=== PATIENT | female | born 1995 | race Caucasian/White ===

== ENCOUNTER 2022-02-18 14:30 | Outpatient (CLI) | payer OTHER | END 2022-02-18 23:59 | disposition home or self-care (01) | LOC: LAB.WC 14:30 | PROVIDERS: ATTEND Obstetrics & Gynecology | DX: Z36.85 Encounter for antenatal screening for Streptococcus B (principal) | CPT/HCPCS: 87797 ==

== ENCOUNTER 2022-02-26 06:30 | Inpatient (IN) | payer OTHER ==
[~2022-02-26 06:30] MED LIST: ACETAMINOPHEN 1,000 MG/100 ML 1,000 MG/100 ML BAG IV ONE; CEFAZOLIN 2G/50ML 0.9% NS 2 GM/50 ML BAG IV SCH; CELECOXIB 100 MG CAPSULE PO SCH; GABAPENTIN 400 MG CAPSULE PO SCH; LACTATED RINGERS 1,000 ML IV SCH; SODIUM CHLORIDE FLUSH 0.9% 10 ML SYRINGE IVP PRN
[2022-02-26 07:12] LABS: BASOPHILS % (AUTO) 0.3 %; EOSINOPHILS # (AUTO) 0.1 10^3/uL (0.0-0.7); EOSINOPHILS % (AUTO) 0.8 %; HCT - HEMATOCRIT 34.5 % (37.0-47.0); HGB - HEMOGLOBIN 11.1 g/dL (12.0-16.0); LYMPHOCYTES # (AUTO) 1.9 10^3/uL (1.5-3.5); LYMPHOCYTES % (AUTO) 20.4 %; MEAN CORPUSCULAR HEMOGLOBIN 27.3 pg (27.0-31.0); MEAN CORPUSCULAR HGB CONC 32.2 g/dL (32.0-36.0); MEAN CORPUSCULAR VOLUME 84.8 fL (81.0-99.0); MEAN PLATELET VOLUME 9.3 fL (7.9-10.8); MONOCYTES # (AUTO) 1.1 10^3/uL (0.0-1.0); MONOCYTES % (AUTO) 12.5 %; NEUTROPHILS # (AUTO) 5.8 10^3/uL (1.5-6.6); NEUTROPHILS % (AUTO) 64.2 %; PLT - PLATELET COUNT 146 10^3/uL (130-450); RED BLOOD COUNT 4.07 10^6/uL (4.20-5.40); RED CELL DISTRIBUTION WIDTH 15.4 % (12.0-15.0); WHITE BLOOD COUNT 9.1 x10^3/uL (4.8-10.8)
--- NOTE | 2022-02-26 07:38 | HISTORY & PHYSICAL EXAMINATION ---
Admit History - : 2 Parity: 1 Care: positive: [facility] Risk/History: positive: Previous Complications This : positive: None Smoking Status: Never smoker - Other Maternal History Other Maternal History: HPI: Patient is a 26-year-old -0-0-1 at 39 weeks gestation by 12-week ultrasou nd. She has good movement. Denies loss of fluid. No LOPES/BV or RUQP. No vaginal bleeding. Denies nausea and vomiting. Denies urinary urgency or dysuria. Occasional contraction. All other symptoms reviewed and were negative except per HPI. Course LMP: unknown. not regular, short interval. C/S 08/2020 HECTOR by LMP: unkown Initial U/S:07/24/2021 FINAL HECTOR:03/05/2022 Pre- Weight:185 BMI: 34 A pos/Rubella immune VZV:immune Genetic testing:AFP-neg FAS:EFW 398g 27th%ile, 3VC, Placenta anterior w/o previa, SOURAV normal 17.1cm Glucola 103 Influenza: 01/23/22 TDAP 12/11/2021 COVID: Infection last week. GBS: Positive HSV: Denies Breast pump Rx MOD: Repeat at 39 weeks. pp contraception: Undecided. pap:07/24/2021 NILM Initial GC/CT:07/24/2021 Negative PMH Cholelithiasis. Obesity PSH Previous low-transverse section x1 Laparoscopic cholecystectomy OB History -0-0-1 1. 09/07/2020, 40 weeks, section, indications, female, 8 pounds 15 ounces SH Denies tobacco, alcohol, drugs Family History Noncontributory Allergies No known drug allergies Medications Vitamins Physical exam: General: Alert, oriented, no acute distress Head: Normal cephalic atraumatic Eyes: PERRLA, extraocular motions intact. Respiratory: Normal rate of respiration. No accessory muscle use, normal respiratory effort. Cardiovascular: Regular rate and rhythm Abdomen: Gravid, nontender, nondistended Extremities: Normal range of motion Neuro: Oriented x3. Normal movements Psych: Appropriate mood and affect. Normal judgment and insight FHT: 140 BPM baseline, moderate variability, no accelerations, no decelerations [place]: 8-10 minutes Plan 26-year-old at 39 weeks gestation for repeat section 1. Repeat section - 2 gram cefazolin - section was recommended. Risks, benefits and alternatives were discussed including but not limited to infection, bleeding that may require blood products or hysterectomy for life saving measures, injury to surrounding organs including but not limited to bowel, bladder, ureters, tubes and ovaries and/or the baby. Should injury occur it could require longer/additional surgery to repair. The patient stated understanding and desired to proceed. All questions were answered posed by patient. 2. 39 weeks gestation 3. Obesity 4. Contractions -proceed with scheduled section 5. GBS positive 6. Short interpregnancy interval Meds/Allgy - Allergies Allergies/Adverse Reactions: Allergies Allergy/AdvReac Type Severity Reaction Status Date / Time No Known Drug Allergies Allergy Verified 02/26/22 01:10 Physical - Abdominal Exam Vital Signs: Temp Pulse Resp BP Pulse Ox O2 Flow Rate 97.9 F 88 22 129/82 H 02/26/22 06:54 02/26/22 06:54 02/26/22 06:54 02/26/22 06:54 Plan for Labor - Plan For Labor I expect patient to be DC'd or transferred within 96 hours.: Yes
[2022-02-26] MEDS ORDERED: OXYTOCIN 10 UNIT/ML VIAL ONE ×2 (07:41→09:34)
[2022-02-26] MEDS ORDERED: fentaNYL 100 MCG/2 ML VIAL ONE (08:00)
[2022-02-26] MEDS ORDERED: MORPHINE PF 5 MG/10 ML VIAL ONE (08:00)
[2022-02-26] MEDS ORDERED: fentaNYL 100 MCG/2 ML VIAL IT ONE (08:25)
[2022-02-26] MEDS ORDERED: MORPHINE PF 5 MG/10 ML VIAL IT ONE (08:25)
--- NOTE | 2022-02-26 08:35 | ANESTHESIA ---
Pre-Anesthesia VS, & Labs - Diagnosis previous c/s - Procedure c/s Vital Signs: Temp Pulse Resp BP Pulse Ox O2 Flow Rate 36.6 C 88 22 129/82 H 02/26/22 06:54 02/26/22 06:54 02/26/22 06:54 02/26/22 06:54 Height: 5 ft 2 in Weight (kg): 99.337 kg Body Mass Index: 40.0 BMI Classification: Morbidly Obese - NPO >8 hours - Is Patient ?: Yes - Lab Results Current Lab Results: Laboratory Tests 02/26/22 07:22: Blood Type Recheck A POSITIVE 02/26/22 07:04: WBC 9.1, RBC 4.07 L, Hgb 11.1 L, Hct 34.5 L, MCV 84.8, MCH 27.3, MCHC 32.2, RDW 15.4 H, Plt Count 146, MPV 9.3, Neut # (Auto) 5.8, Lymph # (Auto) 1.9, [place] # (Auto) 1.1 H, Eos # (Auto) 0.1, Baso # (Auto) 0.0, Absolute Nucleated RBC 0.00, Nucleated RBC % 0.0 02/26/22 07:04: Blood Type A POSITIVE, Antibody Screen NEGATIVE Lab results reviewed: Yes Fish Bones: 02/26/22 07:04 Home Medications and Allergies Active Medications Celecoxib (Celecoxib 100 Mg Capsule) 400 mg PO ONCE RENETTA Stop: 02/27/22 05:59 Last Admin: 02/26/22 07:48 Dose: 400 mg Gabapentin (Gabapentin 400 Mg Capsule) 800 mg PO ONCE RENETTA Stop: 02/27/22 05:59 Last Admin: 02/26/22 07:49 Dose: 800 mg Lactated Ringer's (Lr) 1,000 mls @ 0 mls/hr IV .Q0M RENETTA Last Admin: 02/26/22 07:28 Dose: 30 mls/hr Cefazolin/Sodium Chloride (Ancef 2 Grams/50ml) 2 gm in 50 mls @ 100 mls/hr IV Q8H RENETTA Sodium Chloride (Sodium Chloride Flush 0.9% 10 Ml Syringe) 10 ml IVP PRN PRN PRN Reason: NEEDED PER PROVIDER ORDERS Allergies/Adverse Reactions: Allergies Allergy/AdvReac Type Severity Reaction Status Date / Time No Known Drug Allergies Allergy Verified 02/26/22 01:10 Anes History & Medical History - Anesthetic History Anesthesia Complications: reports: No previous complications Family history of Anesthesia Complications: Denies Family history of Malignant Hyperthermia: Denies - Medical History Cardiovascular: reports: None Pulmonary: reports: Asthma Smoking Status: Never smoker History of Cancer?: No - Surgical History General: reports: Cholecystectomy Gynecologic: reports: section - Obstetrical History : 2 Parity: 1 Events: reports: Previous Complications: reports: None Exam General: Alert, Oriented x3, Cooperative Dental: WNL Mouth Openin Fingerbreadth Neck Mobility: Normal Mallampati classification: II Thyromental Distance: 4-6 cm Respiratory: Lungs clear, Normal breath sounds, No respiratory distress Cardiovascular: Regular rate Plan Anesthesia Type: Spinal Consent for Procedure(s) Verified and Reviewed: Yes Code Status: Attempt Resuscitation ASA classification: 2-Mild systemic disease Is this case an emergency?: No
[2022-02-26] MEDS ORDERED: METOCLOPRAMIDE 10 MG/2 ML VIAL IVP PRN ×2 (08:36→08:37)
[2022-02-26] MEDS ORDERED: ATROPINE ABBOJECT 1 MG/10 ML SYRINGE IVP PRN (08:36)
[2022-02-26] MEDS ORDERED: NALOXONE 0.4 MG/ML VIAL IVP PRN ×2 (08:36→08:37)
[2022-02-26] MEDS ORDERED: ONDANSETRON 4 MG/2 ML VIAL IVP PRN ×2 (08:36→08:37)
[2022-02-26] MEDS ORDERED: HYDROmorphone 0.5 MG/0.5 ML SYRINGE IVP PRN (08:36)
[2022-02-26] MEDS ORDERED: ePHEDrine 50 MG/ML VIAL IVP PRN ×2 (08:36→08:37)
[2022-02-26] MEDS ORDERED: fentaNYL 100 MCG/2 ML VIAL IVP PRN (08:36)
[2022-02-26] MEDS ORDERED: MORPHINE 2 MG/ML CARPUJECT IVP PRN (08:36)
[2022-02-26] MEDS ORDERED: diphenhydrAMINE INJ 50 MG/ML VIAL IVP PRN (08:37)
[2022-02-26] MEDS ORDERED: NALBUPHINE 10 MG/ML AMP IVP PRN (08:37)
[2022-02-26] MEDS ORDERED: LACTATED RINGERS 1,000 ML IV SCH ×2 (09:00→10:00)
[2022-02-26] MEDS ORDERED: SODIUM CHLORIDE FLUSH 0.9% 10 ML SYRINGE IVP PRN (09:56)
[2022-02-26] MEDS ORDERED: OXYTOCIN/SODIUM CHLORIDE 500 ML IV PRN (09:56)
[2022-02-26] MEDS ORDERED: ONDANSETRON ODT 4 MG TABLET TL PRN (09:56)
--- NOTE | 2022-02-26 10:01 | OPERATIVE REPORT ---
Operative Report - General Admit Date: 02/26/22 Procedure Date: 02/26/22 Planned Procedure: Repeat low-transverse section Pre-Op Diagnosis: Previous low transverse section x1 Procedure Performed: Repeat low-transverse section Post Op Diagnosis: Status post repeat low-transverse section, delivery of live single - Procedure Note Primary Surgeon: Fito Gatica MD Secondary Surgeon: MATTY Cervantes Anesthesia Provider: Aj Clark CRNA Anesthesia Technique: Spinal Pathology: None IV Fluids (mL): 2,200 Estimated Blood Loss (mL): 700 Urine Output (mL): 30 Complications: None - Other Other Information/Narrative: Patient is a 26-year-old -0-0-1 at 39 weeks gestation who presented for repeat section. section was recommended. Risks, benefits and alternatives were discussed including but not limited to infection, bleeding that may require blood products or hysterectomy for life saving measures, injury to surrounding organs including but not limited to bowel, bladder, ureters, tubes and ovaries and/or the baby. Should injury occur it could require longer/additional surgery to repair. The patient stated understanding and desired to proceed. All questions were answered posed by patient. Prior to being taken to the OR, 2 grams of cefazolin IV was administered. The patient was taken to the operating room where regional anesthesia was found to be adequate. She was then prepared and draped in the usual sterile fashion in the dorsal supine position with a leftward tilt displacing the uterus. [place] was draining to gravity. SCDs were on bilateral lower extremities. A pfannenstiel skin incision was then made with the scalpel and carried through to the underlying layer of fascia. The fascia was incised in the midline and the incision extended laterally with the Nichols scissors. The superior aspect of the facial incision was then grasped with the Glenys clamps, elevated and the underlying rectus muscles dissected off sharply. Attention was then turned to the inferior aspect of this incision which in a similar fashion was grasped, elevated with the Glenys clamps and the rectus muscle dissected off sharply. The rectus muscles were in the midline. The peritoneum identified, grasped with the pick-ups and entered sharply with the Metzenbaum scissors. The peritoneal incision was then extended superiorly and inferiorly with good visualization of the bladder. The bladder blade was inserted. The vesicouterine peritoneum was identified, grasped with the pick-ups, and entered sharply with Metzenbaum scissors. This incision was then extended laterally and the bladder flap created digitally. The bladder blade was reinserted. The lower uterine segment was identified and incised in a transverse fashion with the scalpel. The uterine incision was then extended bluntly laterally. Artificial rupture of membranes demonstrated clear fluid. The bladder blade was removed. The fetus was in a cephalic presentation. The infants head delivered atraumatically. A nuchal cord x1 was reduced prior to delivery of the body. The left arm was also flexed and delivered with the anterior shoulder. The anterior shoulders were delivered followed by the posterior shoulders then the remainder of the body. The infants mouth and nose were bulb suctioned. The umbilical cord was clamped times two and cut. The infant was handed to the pediatric team. The placenta was removed with gentle traction. Oxytocin were added to IVF and allowed to run freely. The uterus was exteriorized and cleared of all clots and debris. The uterine incision was inspected and found to be without any extensions and was repaired with 0 Vicryl in a running, locked fashion. A second imbricating layer was performed. Upon inspection, the repaired hysterotomy was found to be hemostatic. The uterus was firm and returned to the abdomen. The gutters were cleared of all clots and debris. The fascia was reapproximated with 0 Vicryl in a running fashion. The subcutaneous tissue was closed with 2-0 Vicryl. The skin was closed in a subcuticular fashion with 4-0 Monocryl. The patient tolerated the procedure well. Sponge, lap and needle counts were correct times three. The patient was taken to the recovery room in stable condition. I appreciate the assistance of MATTY Cervantes during this procedure, and the assistance in retraction, visualization, dissection, and overall assistance during the case were instrumental to the patient's wellbeing.
[2022-02-26] MEDS ORDERED: LACTATED RINGERS 1,000 ML IV ONE (10:02)
[2022-02-26] MEDS: KETOROLAC 30 MG/ML VIAL IVP SCH ×3 (12:00→23:24)
--- NOTE | 2022-02-26 12:08 | ANESTHESIA POST OP EVALUATION ---
Anesthesia Post Eval - Post Anesthesia Eval Vitals: Last Vital Signs Temp 36.8 C 02/26/22 11:30 Pulse 73 02/26/22 11:30 Resp 16 02/26/22 11:30 BP 100/70 02/26/22 11:30 Pulse Ox 99 02/26/22 11:30 O2 Flow Rate CV Function Including HR & BP: Stable Pain Control: Satisfactory Nausea & Vomiting: Negative Mental Status: Baseline Respiratory Status: Airway Patent Hydration Status: Satisfactory Anesthesia Complications: None
[2022-02-26] MEDS: ACETAMINOPHEN 500 MG TABLET PO SCH (16:19)
[2022-02-26] MEDS: DOCUSATE SODIUM 100 MG CAPSULE PO SCH (21:08)
[2022-02-26] MEDS: SODIUM CHLORIDE FLUSH 0.9% 10 ML SYRINGE IVP SCH (23:25)
[2022-02-27] MEDS: ACETAMINOPHEN 500 MG TABLET PO SCH ×3 (00:17→17:14)
[2022-02-27] MEDS: KETOROLAC 30 MG/ML VIAL IVP SCH (05:36)
[2022-02-27] MEDS: SODIUM CHLORIDE FLUSH 0.9% 10 ML SYRINGE IVP SCH (05:36)
[2022-02-27 06:20] LABS: BASOPHILS % (AUTO) 0.2 %; EOSINOPHILS % (AUTO) 0.5 %; HCT - HEMATOCRIT 28.6 % (37.0-47.0); HGB - HEMOGLOBIN 9.1 g/dL (12.0-16.0); LYMPHOCYTES # (AUTO) 1.2 10^3/uL (1.5-3.5); LYMPHOCYTES % (AUTO) 13.6 %; MEAN CORPUSCULAR HEMOGLOBIN 27.2 pg (27.0-31.0); MEAN CORPUSCULAR HGB CONC 31.8 g/dL (32.0-36.0); MEAN CORPUSCULAR VOLUME 85.6 fL (81.0-99.0); MEAN PLATELET VOLUME 9.5 fL (7.9-10.8); MONOCYTES # (AUTO) 0.9 10^3/uL (0.0-1.0); MONOCYTES % (AUTO) 10.2 %; NEUTROPHILS # (AUTO) 6.5 10^3/uL (1.5-6.6); NEUTROPHILS % (AUTO) 74.4 %; PLT - PLATELET COUNT 105 10^3/uL (130-450); RED BLOOD COUNT 3.34 10^6/uL (4.20-5.40); RED CELL DISTRIBUTION WIDTH 15.4 % (12.0-15.0); WHITE BLOOD COUNT 8.8 x10^3/uL (4.8-10.8)
--- NOTE | 2022-02-27 08:11 | PROVIDER PROGRESS NOTE ---
Subjective - Prog Note Date Prog Note Date: 02/27/22 Prog Note Time: 08:10 - Subjective Subjective: Subjective Patient reports she is doing well. Lochia appropriate. Denies heavy bleeding. Ambulating. Pelvic and abdominal pain well-controlled. Tolerating oral intake. Diet: Regular. Voiding without difficulty. Passing flatus. Denies BM. Patient is bonding with baby in room Breast feeding going well. Denies feeling lightheaded, dizzy or excessively fatigued. Objective General: Alert, oriented, no apparent distress. Cardiovascular: Regular rate. Regular rhythm. Lungs: No increased work of breathing. Abdomen: Uterus firm. Below umbilicus. No guarding or rebound. Incision: Bandage in place. Extremities: No pain to palpation. No cords palpated. Distal pulses intact. Assessment and Plan day 1. -Routine care -Anticipate discharge tomorrow Objective - Vital Signs/Intake & Output Vital Signs: Vital Signs x48h Temp Pulse Resp BP Pulse Ox 02/27/22 06:38 106/58 L 02/27/22 06:20 98.2 F 73 98/51 L 96 02/27/22 00:50 98.4 F 86 18 107/58 L 97 Intake & Output: Intake & Output 02/24/22 02/25/22 02/26/22 02/27/22 23:59 23:59 23:59 23:59 Intake Total 1900 400 Output Total 2250 835 Balance -350 -435 - Lab Results Fish Bones: 02/27/22 06:13 Other Labs: Lab Results x24hrs 02/27/22 Range/Units 06:13 WBC 8.8 (4.8-10.8) x10^3/uL RBC 3.34 L (4.20-5.40) 10^6/uL Hgb 9.1 L (12.0-16.0) g/dL Hct 28.6 L (37.0-47.0) % MCV 85.6 (81.0-99.0) fL MCH 27.2 (27.0-31.0) pg MCHC 31.8 L (32.0-36.0) g/dL RDW 15.4 H (12.0-15.0) % Plt Count 105 L (130-450) 10^3/uL MPV 9.5 (7.9-10.8) fL Neut # (Auto) 6.5 (1.5-6.6) 10^3/uL Lymph # (Auto) 1.2 L (1.5-3.5) 10^3/uL [place] # (Auto) 0.9 (0.0-1.0) 10^3/uL Eos # (Auto) 0.0 (0.0-0.7) 10^3/uL Baso # (Auto) 0.0 (0.0-0.1) 10^3/uL Absolute Nucleated RBC 0.00 x10^3/uL Nucleated RBC % 0.0 /100WBC
[2022-02-27] MEDS: DOCUSATE SODIUM 100 MG CAPSULE PO SCH ×2 (09:26→20:28)
[2022-02-27] MEDS: IBUPROFEN 600 MG TABLET PO SCH ×2 (11:44→17:15)
[2022-02-27] MEDS: SIMETHICONE CHEW 80 MG TABLET PO PRN (18:07)
[2022-02-27] MEDS: oxyCODONE 5 MG TABLET PO PRN (23:21)
[2022-02-28] MEDS: IBUPROFEN 600 MG TABLET PO SCH ×3 (00:29→12:26)
[2022-02-28] MEDS: ACETAMINOPHEN 500 MG TABLET PO SCH ×2 (01:40→10:23)
[2022-02-28] MEDS: SIMETHICONE CHEW 80 MG TABLET PO PRN ×2 (07:45→12:26)
[2022-02-28] MEDS: DOCUSATE SODIUM 100 MG CAPSULE PO SCH (09:16)
[2022-02-28] MEDS: oxyCODONE 5 MG TABLET PO PRN ×2 (09:16→13:09)
--- NOTE | 2022-02-28 10:23 | Discharge Plan ---
Discharge Plan Problem Reviewed?: Yes Disposition: Home, Self Care Condition: Good Prescriptions: oxyCODONE [Roxicodone] 5 mg PO Q4HR PRN #24 tab PRN Reason: Pain Docusate Sodium 100Mg Capsule [Colace 100Mg Capsule] 100 mg PO BID #30 cap Ibuprofen [Motrin] 600 mg PO Q6H PRN #40 tab PRN Reason: Abdominal Pain Ondansetron Odt [Zofran Odt] 4 mg TL Q4H PRN #10 tab PRN Reason: Nausea / Vomiting Diet: Regular Activity Restrictions: Additional Comments (Avoid lifting more than 10 pounds for 6 weeks. Avoid anything inside the vagina including tampons and intercourse for 6 weeks.) Shower Restrictions: No Weight Bearing: Full Weight Instruction Topics: C Section Dc No Smoking: If you smoke, Please STOP! Call for help.
--- NOTE | 2022-02-28 10:30 | DISCHARGE SUMMARY ---
Discharge Summary Admit Date: 02/26/22 Discharge Date: 02/28/22 Discharging Provider: Ryan Brandon MD Primary Care Provider: Fito Gatica MD Code Status: Attempt Resuscitation Condition at Discharge: Good Discharge Disposition: 01 Home, Self Care - DIAGNOSES Admission Diagnoses: Patient is a 26 year old female who presented on 02/26/22 at 39 weeks for a repeat delivery. - HPI History of Present Illness: Patient is a 26-year-old female G2 now P2 002 who presented on February 26, 2022 at 39 weeks gestation for repeat elective section. Her care has been noted for history of obesity, positive GBS culture, and short interval between pregnancies. - HOSPITAL COURSE Hospital Course: Patient is a 26-year-old female who presented on February 26, 2022 at 39 weeks gestation for repeat low transverse section. This was completed on Feb. The patient's postoperative course was uncomplicated. She had a hemoglobin of 9.1 and a platelet level of 105. She reports of adequate pain control with a combination of Tylenol, ibuprofen, and oxycodone. She has been able to tolerate a regular diet and ambulate without difficulty. She reports of occasional nausea for which she would like to continue on Zofran as needed. She was dismissed to home in good condition on February 28, 2022. She has a follow- up appointment in 1 week. Postoperative care instructions and control options were reviewed with the patient. - ALLERGIES Allergies/Adverse Reactions: Allergies Allergy/AdvReac Type Severity Reaction Status Date / Time No Known Drug Allergies Allergy Verified 02/26/22 01:10 - MEDICATIONS Home Medications: Ambulatory Orders Medication Instructions Recorded Confirmed Acetaminophen [Tylenol] 1,000 mg PO Q8H tab 02/28/22 Docusate Sodium 100Mg Capsule 100 mg PO BID #30 cap 02/28/22 [Colace 100Mg Capsule] Ibuprofen [Motrin] 600 mg PO Q6H PRN #40 tab 02/28/22 Ondansetron Odt [Zofran Odt] 4 mg TL Q4H PRN #10 tab 02/28/22 oxyCODONE [Roxicodone] 5 mg PO Q4HR PRN #24 tab 02/28/22 - PHYSICAL EXAM AT DISCHARGE General Appearance: positive: No acute distress Eyes Bilateral: positive: Normal inspection ENT: positive: ENT inspection nml Cardiovascular: positive: Regular rate & rhythm Peripheral Pulses: positive: 2+ Abdomen: positive: Non-tender, Nml bowel sounds, Other (Incision appears healthy without signs of infection) Extremities: positive: Non-tender, No pedal edema Neurologic/Psychiatric: positive: Oriented x3 - LABS Result Diagrams: 02/27/22 06:13
[2022-02-28 12:37] VITALS: BP 122/78
== END 2022-02-28 14:20 | disposition home or self-care (01) | DRG 788 ==
LOC: FBP 06:30
PROVIDERS: ADMIT Obstetrics & Gynecology; ATTEND Obstetrics & Gynecology
PROC: 10D00Z1 Extraction of Products of Conception, Low, Open Approach (ICD-10-PCS; principal; 2022-02-26 08:30)
DX: O34.211 Maternal care for low transverse scar from previous cesarean delivery (principal); N85.8 Other specified noninflammatory disorders of uterus; Z3A.39 39 weeks gestation of pregnancy; Z37.0 Single live birth; O69.81X0 Labor and delivery complicated by cord around neck, without compression, not applicable or unspecified; O99.824 Streptococcus B carrier state complicating childbirth; O99.214 Obesity complicating childbirth; Z86.16 Personal history of COVID-19
CPT/HCPCS: 36415; 85025; 86850; 86900; 86901; A9270; J0131; J0690; J2274; J7040; J7120; Q0162